=== PATIENT | female | born 1950 | race Caucasian/White ===

== ENCOUNTER 2023-03-10 09:01 | Inpatient (IN) | payer OTHER, MEDICAID ==
[~2023-03-10] VITALS: Ht 157.5 cm; Wt 107.0 kg
[~2023-03-10 09:01] MED LIST: ASPI-1155 PO; CHOL50006 PO; FURO-149 PO; GLIP10TA11 PO; INSU100V9 SUBCUT; LOSA50TA3 PO; OMEP40CA20 PO; POTA10TA15 PO; ROPI4TAB3 PO; SITA50TA3 PO; SUCR1TAB2 PO
[2023-03-10 09:06] VITALS: BP_SYST 117; PULSE 91; RESP 22; TEMP 98; O2SAT 88
[2023-03-10 09:45] LABS: BASOPHILS # (AUTO) 0.1 K/uL (0.0-0.2); BASOPHILS % (AUTO) 0.9 % (0.0-2.0); EOSINOPHILS # (AUTO) 0.3 K/uL (0.0-0.4); EOSINOPHILS % (AUTO) 2.8 % (0.0-4.0); HEMATOCRIT 28.1 % (36-48); HEMOGLOBIN 9.6 g/dL (12.0-16.0); LYMPHOCYTES # (AUTO) 2.1 K/uL (1.0-5.5); LYMPHOCYTES % (AUTO) 17.6 % (20.5-51.5); MEAN CORPUSCULAR HEMOGLOBIN 36 pg (27-31); MEAN CORPUSCULAR HGB CONC 34 % (32-36); MEAN CORPUSCULAR VOLUME 104 fL (79.0-98.0); MONOCYTES # (AUTO) 1.5 K/uL (0.0-1.0); MONOCYTES % (AUTO) 12.4 % (1.7-9.3); NEUTROPHILS # (AUTO) 7.8 K/uL (1.8-7.7); NEUTROPHILS % (AUTO) 66.3 % (40.0-70.0); PLATELET COUNT (AUTO) 254 K/uL (130-430); WHITE BLOOD COUNT (AUTO) 11.7 K/uL (4.8-10.8)
[2023-03-10 10:01] LABS: INR 1.1 (0.8-1.2); PROTHROMBIN TIME 11.7 SECS (9.5-12.5)
[2023-03-10 10:02] LABS: ANION GAP 11 (5-15); CALCIUM 8.3 mg/dL (8.4-11.0); CHLORIDE 100 mmol/L (98-107); CREATININE 6.52 mg/dL (0.55-1.30); GLUCOSE 191 mg/dL (70-99); UREA NITROGEN, BLOOD 63 mg/dL (8-21)
[2023-03-10 10:07] LABS: ALANINE AMINOTRANSFERASE 30 U/L (12-78); ALBUMIN 2.9 g/dL (3.4-4.8); ASPARTATE AMINOTRANSFERASE 15 U/L (10-37); TOTAL BILIRUBIN 0.4 mg/dL (0.0-1.0)
[2023-03-10] MEDS ORDERED: MORPHINE 2 MG/ML INJ. SYRINGE IVP ONE (14:15)
[2023-03-10 15:46] VITALS: BP_SYST 130; PULSE 84; RESP 16; TEMP 97.2
[2023-03-10 16:20] VITALS: O2SAT 94
[2023-03-10] MEDS ORDERED: SIME80TA15 PO (16:51)
[2023-03-10] MEDS ORDERED: VANC125C10 PO (16:51)
[2023-03-10] MEDS ORDERED: FURO-150 PO (16:51)
[2023-03-10] MEDS ORDERED: GABA-529 PO (16:51)
[2023-03-10] MEDS ORDERED: MIDO10TA PO (16:51)
[2023-03-10] MEDS ORDERED: METR-154 PO (16:51)
[2023-03-10] MEDS ORDERED: TRAM50TA2 PO (16:51)
[2023-03-10 20:00] VITALS: BP_SYST 116; PULSE 87; RESP 17; TEMP 97.7; O2SAT 95
[2023-03-10] MEDS ORDERED: INSULIN REGULAR, HUMAN 100 UNITS/ML, 3 ML VIAL (humuLIN R) SUBCUT PRN (22:30)
[2023-03-10] MEDS ORDERED: NALOXONE HCL 0.4 MG/ML AMP (NARCAN) IVP PRN (22:30)
[2023-03-10] MEDS ORDERED: ACETAMINOPHEN 325 MG TABLET PO PRN (22:30)
[2023-03-10] MEDS ORDERED: HYDROcodone/ACETAMIN 10-325 MG TAB PO PRN (22:30)
[2023-03-10] MEDS ORDERED: ONDANSETRON HCL 4 MG/2 ML VIAL IVP PRN (22:30)
[2023-03-10] MEDS ORDERED: LORazepam 2 MG/ML VIAL IVP PRN (22:30)
[2023-03-10] MEDS ORDERED: traMADol HCL HCL 50 MG TABLET (ULTRAM) PO PRN (22:30)
[2023-03-10] MEDS ORDERED: CHOLECALCIFEROL (VITAMIN D3) 5,000 UNIT TABLET PO SCH (22:30)
[2023-03-11] VITALS: BP_SYST 129; PULSE 88; RESP 18; TEMP 98; O2SAT 94
[2023-03-11 00:42] VITALS: O2SAT 95
[2023-03-11 06:30] LABS: BASOPHILS # (AUTO) 0.1 K/uL (0.0-0.2); EOSINOPHILS # (AUTO) 0.3 K/uL (0.0-0.4); EOSINOPHILS % (AUTO) 3.7 % (0.0-4.0); HEMATOCRIT 24.1 % (36-48); HEMOGLOBIN 8.4 g/dL (12.0-16.0); LYMPHOCYTES # (AUTO) 2.4 K/uL (1.0-5.5); LYMPHOCYTES % (AUTO) 25.9 % (20.5-51.5); MEAN CORPUSCULAR HEMOGLOBIN 37 pg (27-31); MEAN CORPUSCULAR HGB CONC 35 % (32-36); MEAN CORPUSCULAR VOLUME 105 fL (79.0-98.0); MONOCYTES # (AUTO) 1.3 K/uL (0.0-1.0); MONOCYTES % (AUTO) 14.2 % (1.7-9.3); NEUTROPHILS # (AUTO) 5.2 K/uL (1.8-7.7); NEUTROPHILS % (AUTO) 55.2 % (40.0-70.0); PLATELET COUNT (AUTO) 271 K/uL (130-430); RED BLOOD CELL COUNT(AUTO) 2.29 MIL/uL (4.2-6.2); RED CELL DISTRIBUTION WIDTH 13.6 % (9.0-15.0); WHITE BLOOD COUNT (AUTO) 9.4 K/uL (4.8-10.8)
[2023-03-11] MEDS: NORMAL SALINE 5 ML DISP.SYRIN IVF SCH ×2 (06:30→15:28)
[2023-03-11 07:07] LABS: ALANINE AMINOTRANSFERASE 37 U/L (12-78); ALBUMIN 2.7 g/dL (3.4-4.8); ANION GAP 13 (5-15); ASPARTATE AMINOTRANSFERASE 19 U/L (10-37); CALCIUM 7.5 mg/dL (8.4-11.0); CHLORIDE 100 mmol/L (98-107); GLUCOSE 145 mg/dL (70-99); PHOSPHORUS 6.1 mg/dL (2.7-4.5); TOTAL BILIRUBIN 0.4 mg/dL (0.0-1.0); UREA NITROGEN, BLOOD 78 mg/dL (8-21)
[2023-03-11 07:42] LABS: CREATININE 8.06 mg/dL (0.55-1.30)
[2023-03-11 08:24] VITALS: BP_SYST 106; PULSE 89; RESP 20; TEMP 97.6; O2SAT 96
[2023-03-11] MEDS ORDERED: LOSARTAN POTASSIUM 50 MG TABLET (COZAAR) PO SCH (09:00)
[2023-03-11] MEDS ORDERED: POTASSIUM CHLORIDE 10 MEQ TAB.PRT.SR PO SCH (09:00)
[2023-03-11] MEDS ORDERED: PANTOPRAZOLE SODIUM 40 MG TAB PO SCH (09:00)
[2023-03-11] MEDS ORDERED: INSULIN GLARGINE 100 UNITS/ML, 10 ML VIAL SUBCUT SCH (09:00)
[2023-03-11] MEDS ORDERED: ASPIRIN 81 MG TAB.CHEW PO SCH (09:00)
[2023-03-11] MEDS ORDERED: VANCOMYCIN HCL Non-Formulary 125 MG CAPSULE PO SCH (09:00)
[2023-03-11] MEDS ORDERED: SUCRALFATE 1 GM TABLET PO SCH (09:00)
[2023-03-11] MEDS ORDERED: FUROSEMIDE 40 MG TABLET PO SCH (09:00)
[2023-03-11 09:25] LABS: TOTAL IRON BIND. CAPACITY 180 ug/dL (250-450)
[2023-03-11] MEDS: GABAPENTIN 100 MG CAPSULE PO SCH ×2 (10:35→17:04)
[2023-03-11] MEDS: traMADol HCL HCL 50 MG TABLET (ULTRAM) PO PRN ×2 (10:37→17:06)
[2023-03-11] MEDS: metroNIDAZOLE 500 MG TABLET PO SCH ×2 (10:38→17:06)
[2023-03-11] MEDS: MIDODRINE HCL 5 MG TABLET (PROAMATINE) PO SCH ×2 (10:38→17:05)
[2023-03-11] MEDS: VANCOMYCIN HCL ORAL SOLUTION 125 MG/5 ML, 150 ML PO SCH ×3 (10:40→19:03)
[2023-03-11] MEDS: SIMETHICONE 80 MG TAB.CHEW PO SCH ×2 (10:42→17:05)
[2023-03-11 12:02] VITALS: BP_SYST 124; PULSE 87; RESP 19; TEMP 98.2; O2SAT 96
[2023-03-11] MEDS ORDERED: IRON DEXTRAN COMPLEX 25 MG in NS 50 ML TEST DOSE IV ONE (15:00)
[2023-03-11] MEDS ORDERED: IRON DEXTRAN COMPLEX 100 MG in NS 100 ML IV SCH (15:00)
[2023-03-11] MEDS ORDERED: IRON DEXTRAN COMPLEX 75 MG in NS 100 ML IV ONE (16:00)
[2023-03-11 17:38] VITALS: BP_SYST 105; PULSE 78; RESP 18; TEMP 97.4; O2SAT 97
[2023-03-11] MEDS ORDERED: SEVELAMER CARBONATE 800 MG TABLET PO SCH (18:00)
[2023-03-11 20:00] VITALS: BP_SYST 137; PULSE 78; RESP 18; TEMP 98.5; O2SAT 93
[2023-03-12] MEDS ORDERED: calcitrioL 0.25 MCG CAPSULE PO SCH (09:00)
[2023-03-12] MEDS ORDERED: IRON DEXTRAN COMPLEX 100 MG in NS 100 ML IV SCH (16:00)
== END 2023-03-11 20:45 | disposition home health service (06) | DRG 562 ==
LOC: SED 09:01 → SMU 14:08
PROVIDERS: ADMIT Preventive Medicine Preventive Medicine/Occupational Environmental Medicine; ATTEND Preventive Medicine Preventive Medicine/Occupational Environmental Medicine
PROC: 5A1D70Z Performance of Urinary Filtration, Intermittent, Less than 6 Hours Per Day (ICD-10-PCS; principal; 2023-03-10)
PROC: 0QSKXZZ Reposition Left Fibula, External Approach (ICD-10-PCS; 2023-03-10)
DX: S82.62XA Displaced fracture of lateral malleolus of left fibula, initial encounter for closed fracture (principal); N18.6 End stage renal disease; I13.2 Hypertensive heart and chronic kidney disease with heart failure and with stage 5 chronic kidney disease, or end stage renal disease; Z68.41 Body mass index [BMI] 40.0-44.9, adult; K21.9 Gastro-esophageal reflux disease without esophagitis; J44.9 Chronic obstructive pulmonary disease, unspecified; J45.909 Unspecified asthma, uncomplicated; I25.10 Atherosclerotic heart disease of native coronary artery without angina pectoris; E11.22 Type 2 diabetes mellitus with diabetic chronic kidney disease; G25.81 Restless legs syndrome; E11.65 Type 2 diabetes mellitus with hyperglycemia; E87.5 Hyperkalemia; E66.9 Obesity, unspecified; E83.51 Hypocalcemia; D50.9 Iron deficiency anemia, unspecified; I95.9 Hypotension, unspecified; W01.0XXA Fall on same level from slipping, tripping and stumbling without subsequent striking against object, initial encounter; E88.09 Other disorders of plasma-protein metabolism, not elsewhere classified; Z86.73 Personal history of transient ischemic attack (TIA), and cerebral infarction without residual deficits; Z88.0 Allergy status to penicillin; Z88.8 Allergy status to other drugs, medicaments and biological substances; I50.9 Heart failure, unspecified
CPT/HCPCS: 36415; 70450-TC; 72125-TC; 76376; 80053; 83540; 83550; 84100; 84484; 85025; 85610-TC; 85730-TC; 87081; 90935; 97110-GP; 97116-GP; 97163-GP; 97530-GP; 99285; J1750; J1815; J7030

== ENCOUNTER 2023-03-31 17:35 | Inpatient (IN) | payer OTHER, MEDICAID ==
[~2023-03-31] VITALS: Ht 157.5 cm; Wt 105.0 kg
[~2023-03-31 17:35] MED LIST changes: +FURO-150 PO; +GABA-529 PO; +METR-154 PO; +MIDO10TA PO; +SIME80TA15 PO; +TRAM50TA2 PO; +VANC125C10 PO
[2023-03-31 17:50] VITALS: BP_SYST 139; PULSE 99; RESP 18; TEMP 98.3; O2SAT 95
[2023-03-31] MEDS ORDERED: ACETAMINOPHEN 500 MG TABLET PO ONE (19:45)
[2023-03-31] MEDS ORDERED: CEFAZOLIN 2 GM IVPB PREMIX 50 ML IV ONE (20:45)
[2023-03-31 21:01] LABS: BASOPHILS # (AUTO) 0.1 K/uL (0.0-0.2); BASOPHILS % (AUTO) 0.7 % (0.0-2.0); EOSINOPHILS # (AUTO) 0.2 K/uL (0.0-0.4); HEMATOCRIT 29.3 % (36-48); HEMOGLOBIN 9.6 g/dL (12.0-16.0); LYMPHOCYTES # (AUTO) 2.5 K/uL (1.0-5.5); LYMPHOCYTES % (AUTO) 21.9 % (20.5-51.5); MEAN CORPUSCULAR HEMOGLOBIN 34 pg (27-31); MEAN CORPUSCULAR HGB CONC 33 % (32-36); MEAN CORPUSCULAR VOLUME 104 fL (79.0-98.0); MONOCYTES # (AUTO) 1.4 K/uL (0.0-1.0); MONOCYTES % (AUTO) 12.4 % (1.7-9.3); NEUTROPHILS # (AUTO) 7.1 K/uL (1.8-7.7); PLATELET COUNT (AUTO) 398 K/uL (130-430); RED BLOOD CELL COUNT(AUTO) 2.82 MIL/uL (4.2-6.2); RED CELL DISTRIBUTION WIDTH 14.1 % (9.0-15.0); WHITE BLOOD COUNT (AUTO) 11.3 K/uL (4.8-10.8)
[2023-03-31] MEDS ORDERED: CEFAZOLIN 1 GM IVPB PREMIX 100 ML IV ONE (21:10)
[2023-03-31 21:15] LABS: ALANINE AMINOTRANSFERASE 20 U/L (12-78); ANION GAP 9 (5-15); ASPARTATE AMINOTRANSFERASE 19 U/L (10-37); CALCIUM 8.3 mg/dL (8.4-11.0); CHLORIDE 91 mmol/L (98-107); CREATININE 6.49 mg/dL (0.55-1.30); GLUCOSE 123 mg/dL (74-106); TOTAL BILIRUBIN 0.5 mg/dL (0.0-1.0); UREA NITROGEN, BLOOD 38 mg/dL (8-21)
[2023-03-31] MEDS ORDERED: D5/0.45 NS 1,000 ML IV ONE (21:15)
[2023-03-31] MEDS: MORPHINE 2 MG/ML INJ. SYRINGE IVP PRN (21:57)
[2023-03-31] MEDS ORDERED: AMLO5TAB4 PO (22:26)
[2023-03-31] MEDS ORDERED: SSNOVOLOG SUBCUT (22:26)
[2023-03-31] MEDS ORDERED: SEVE0.8P3 PO (22:26)
[2023-03-31] MEDS ORDERED: BENZ100C92 PO (22:26)
[2023-04-01] MEDS ORDERED: ONDANSETRON HCL 4 MG/2 ML VIAL IM PRN (00:30)
[2023-04-01] MEDS ORDERED: NALOXONE HCL 0.4 MG/ML AMP (NARCAN) IVP PRN (00:30)
[2023-04-01] MEDS: MORPHINE 2 MG/ML INJ. SYRINGE IVP PRN ×4 (00:58→21:21)
[2023-04-01 01:10] VITALS: BP_SYST 123; PULSE 75; RESP 18; TEMP 97.1; O2SAT 99
[2023-04-01 06:00] LABS: BASOPHILS # (AUTO) 0.1 K/uL (0.0-0.2); BASOPHILS % (AUTO) 0.7 % (0.0-2.0); EOSINOPHILS # (AUTO) 0.2 K/uL (0.0-0.4); EOSINOPHILS % (AUTO) 2.6 % (0.0-4.0); HEMATOCRIT 23.9 % (36-48); LYMPHOCYTES # (AUTO) 2.3 K/uL (1.0-5.5); LYMPHOCYTES % (AUTO) 25.5 % (20.5-51.5); MEAN CORPUSCULAR HEMOGLOBIN 35 pg (27-31); MEAN CORPUSCULAR HGB CONC 33 % (32-36); MEAN CORPUSCULAR VOLUME 103 fL (79.0-98.0); MONOCYTES # (AUTO) 1.2 K/uL (0.0-1.0); MONOCYTES % (AUTO) 13.2 % (1.7-9.3); NEUTROPHILS # (AUTO) 5.2 K/uL (1.8-7.7); PLATELET COUNT (AUTO) 321 K/uL (130-430); RED BLOOD CELL COUNT(AUTO) 2.31 MIL/uL (4.2-6.2); RED CELL DISTRIBUTION WIDTH 14.3 % (9.0-15.0)
[2023-04-01 06:32] LABS: ALANINE AMINOTRANSFERASE 39 U/L (12-78); ALBUMIN 2.5 g/dL (3.4-4.8); ANION GAP 11 (5-15); ASPARTATE AMINOTRANSFERASE 54 U/L (10-37); CALCIUM 7.7 mg/dL (8.4-11.0); CHLORIDE 94 mmol/L (98-107); CREATININE 7.27 mg/dL (0.55-1.30); GLUCOSE 104 mg/dL (74-106); TOTAL BILIRUBIN 0.8 mg/dL (0.0-1.0); UREA NITROGEN, BLOOD 46 mg/dL (8-21)
[2023-04-01 08:00] VITALS: BP_SYST 118; PULSE 72; RESP 18; TEMP 96.8; O2SAT 100
[2023-04-01 12:10] VITALS: BP_SYST 112; PULSE 73; RESP 18; TEMP 97.3; O2SAT 96
[2023-04-01] MEDS ORDERED: PROPOFOL 200MG/ 20ML VIAL (DIPRIVAN) IV ONE (12:25)
[2023-04-01] MEDS ORDERED: VANCOMYCIN HCL 1000 MG/VIAL IV ONE (12:25)
[2023-04-01] MEDS ORDERED: fentaNYL CITRATE/PF 100 MCG/2 ML AMP ONE (12:25)
[2023-04-01] MEDS ORDERED: SEVOFLURANE 15 MIN GAS INH ONE (12:25)
[2023-04-01] MEDS ORDERED: NS IRRIG SOLN 1000 ML IR ONE (12:25)
[2023-04-01] MEDS ORDERED: NS 1000 ML IV.SOLN IV ONE (12:25)
[2023-04-01] MEDS ORDERED: ONDANSETRON HCL 4 MG/2 ML VIAL ONE (12:25)
[2023-04-01] MEDS ORDERED: METOCLOPRAMIDE HCL 10 MG/2 ML VIAL IVP PRN (13:00)
[2023-04-01] MEDS ORDERED: NACL 0.9% 1,000 ML IV SCH (13:00)
[2023-04-01] MEDS ORDERED: ONDANSETRON HCL 4 MG/2 ML VIAL IVP PRN (13:00)
[2023-04-01] MEDS: HYDROmorphone 1 MG/ML INJ. CARTRIDGE IVP PRN ×3 (13:35→14:05)
[2023-04-01] MEDS ORDERED: HYDROmorphone 1 MG/ML INJ. CARTRIDGE ONE (13:36)
[2023-04-01] MEDS ORDERED: VANCOMYCIN HCL 1,000 MG in NS 250 ML IV ONE (16:00)
[2023-04-01 16:34] VITALS: BP_SYST 123; PULSE 82; RESP 18; TEMP 97.5; O2SAT 98
[2023-04-01 20:00] VITALS: BP_SYST 118; PULSE 77; RESP 18; TEMP 97; O2SAT 100
[2023-04-01] MEDS ORDERED: MIDODRINE HCL 5 MG TABLET (PROAMATINE) PO ONE (21:30)
[2023-04-01] MEDS ORDERED: INSULIN ASPART 100 UNITS/ML, 10 ML VIAL (NovoLOG) SUBCUT PRN (22:15)
[2023-04-01] MEDS ORDERED: GABAPENTIN 100 MG CAPSULE PO ONE (22:15)
[2023-04-01] MEDS ORDERED: traMADol HCL HCL 50 MG TABLET (ULTRAM) PO ONE (22:15)
[2023-04-01] MEDS: ceFAZolin SODIUM 2 GM in D5W 100 ML IV SCH (23:15)
[2023-04-01] MEDS ORDERED: PANTOPRAZOLE SODIUM 40 MG TAB PO ONE (23:15)
[2023-04-02 00:15] VITALS: BP_SYST 138; PULSE 98; RESP 20; TEMP 97.9; O2SAT 98
[2023-04-02] MEDS ORDERED: XALEYE OP (01:37)
[2023-04-02] MEDS ORDERED: LINA5TAB2 PO (01:37)
[2023-04-02] MEDS ORDERED: LOM2.5 PO (01:37)
[2023-04-02] MEDS ORDERED: NEU300 PO (01:37)
[2023-04-02] MEDS ORDERED: ACET-2634 PO (01:49)
[2023-04-02] MEDS ORDERED: FIDA200T PO (01:49)
[2023-04-02] MEDS ORDERED: IMO2 PO (01:49)
[2023-04-02] MEDS ORDERED: SIMETHICONE 80 MG TAB.CHEW PO SCH (02:00)
[2023-04-02] MEDS ORDERED: BENZONATATE 100 MG CAPSULE (TESSALON) PO PRN (02:00)
[2023-04-02] MEDS ORDERED: ACETAMINOPHEN 500 MG TABLET PO SCH (02:00)
[2023-04-02] MEDS ORDERED: DIPHENOXYLATE HCL/ATROP SULF 2.5 MG TAB PO SCH (02:00)
[2023-04-02] MEDS ORDERED: CHOLECALCIFEROL (VITAMIN D3) 5,000 UNIT TABLET PO SCH (02:00)
[2023-04-02] MEDS: LOPERAMIDE HCL 2 MG CAPSULE PO SCH ×3 (05:08→17:13)
[2023-04-02 05:38] LABS: BASOPHILS # (AUTO) 0.1 K/uL (0.0-0.2); BASOPHILS % (AUTO) 0.5 % (0.0-2.0); EOSINOPHILS # (AUTO) 0.2 K/uL (0.0-0.4); EOSINOPHILS % (AUTO) 1.8 % (0.0-4.0); HEMATOCRIT 24.6 % (36-48); HEMOGLOBIN 8.1 g/dL (12.0-16.0); LYMPHOCYTES # (AUTO) 0.8 K/uL (1.0-5.5); LYMPHOCYTES % (AUTO) 8.2 % (20.5-51.5); MEAN CORPUSCULAR HEMOGLOBIN 34 pg (27-31); MEAN CORPUSCULAR HGB CONC 33 % (32-36); MEAN CORPUSCULAR VOLUME 104 fL (79.0-98.0); MONOCYTES # (AUTO) 0.9 K/uL (0.0-1.0); MONOCYTES % (AUTO) 8.9 % (1.7-9.3); NEUTROPHILS # (AUTO) 8.1 K/uL (1.8-7.7); NEUTROPHILS % (AUTO) 80.6 % (40.0-70.0); PLATELET COUNT (AUTO) 322 K/uL (130-430); RED BLOOD CELL COUNT(AUTO) 2.37 MIL/uL (4.2-6.2); RED CELL DISTRIBUTION WIDTH 14.1 % (9.0-15.0); WHITE BLOOD COUNT (AUTO) 10.1 K/uL (4.8-10.8)
[2023-04-02 05:53] LABS: ANION GAP 8 (5-15); CALCIUM 7.8 mg/dL (8.4-11.0); CHLORIDE 99 mmol/L (98-107); CREATININE 4.65 mg/dL (0.55-1.30); GLUCOSE 151 mg/dL (74-106); PHOSPHORUS 4.4 mg/dL (2.7-4.5); UREA NITROGEN, BLOOD 23 mg/dL (8-21); VANCOMYCIN,RANDOM 18.8 ug/mL
[2023-04-02] MEDS: ceFAZolin SODIUM 2 GM in D5W 100 ML IV SCH ×3 (06:18→22:00)
[2023-04-02 07:00] VITALS: BP_SYST 130; PULSE 93; RESP 18; TEMP 98.7; O2SAT 99
[2023-04-02 08:00] VITALS: BP_SYST 130; PULSE 93; RESP 18; TEMP 98.7; O2SAT 99
[2023-04-02] MEDS: INSULIN GLARGINE 100 UNITS/ML, 10 ML VIAL SUBCUT SCH (08:30)
[2023-04-02] MEDS: ASPIRIN 81 MG TAB.CHEW PO SCH (08:31)
[2023-04-02] MEDS: amLODIPine BESYLATE 5 MG TABLET PO SCH (08:33)
[2023-04-02] MEDS: SEVELAMER CARBONATE 800 MG TABLET PO SCH ×3 (08:34→17:13)
[2023-04-02] MEDS: MORPHINE 2 MG/ML INJ. SYRINGE IVP PRN (08:35)
[2023-04-02] MEDS: MIDODRINE HCL 5 MG TABLET (PROAMATINE) PO SCH ×3 (08:38→21:44)
[2023-04-02 11:52] VITALS: BP_SYST 130; PULSE 92; RESP 17; TEMP 97.4; O2SAT 91
[2023-04-02 16:52] VITALS: BP_SYST 114; PULSE 79; RESP 19; TEMP 97.9; O2SAT 91
[2023-04-02 20:00] VITALS: O2SAT 95
[2023-04-02] MEDS: GABAPENTIN 100 MG CAPSULE PO SCH (21:44)
[2023-04-02] MEDS: PANTOPRAZOLE SODIUM 40 MG TAB PO SCH (21:44)
[2023-04-02] MEDS: LATANOPROST 2.5 ML DROPS (XALATAN) OP SCH (21:44)
[2023-04-02] MEDS: INSULIN LISPRO SLIDING SCALE 100 UNITS/ML, 3 ML VIAL (humaLOG) SUBCUT PRN (21:50)
[2023-04-03] VITALS (9 sets, daily range): BP systolic 119–136; PULSE 77–88; RESP 12–20; TEMP 97.2–98.5; O2SAT 94–100
[2023-04-03] MEDS: LOPERAMIDE HCL 2 MG CAPSULE PO SCH ×2 (00:57→06:51)
[2023-04-03] MEDS: ceFAZolin SODIUM 2 GM in D5W 100 ML IV SCH ×3 (05:08→22:54)
[2023-04-03] MEDS ORDERED: ONDANSETRON HCL 4 MG/2 ML VIAL IVP PRN (09:00)
[2023-04-03] MEDS ORDERED: VANCOMYCIN HCL 1,000 MG in NS 250 ML IV ONE (09:00)
[2023-04-03] MEDS: SEVELAMER CARBONATE 800 MG TABLET PO SCH ×3 (09:46→18:00)
[2023-04-03] MEDS: MIDODRINE HCL 5 MG TABLET (PROAMATINE) PO SCH ×3 (09:46→21:00)
[2023-04-03] MEDS: ASPIRIN 81 MG TAB.CHEW PO SCH (09:46)
[2023-04-03] MEDS: INSULIN GLARGINE 100 UNITS/ML, 10 ML VIAL SUBCUT SCH (10:12)
[2023-04-03] MEDS: traMADol HCL HCL 50 MG TABLET (ULTRAM) PO PRN ×2 (15:26→23:07)
[2023-04-03] MEDS: amLODIPine BESYLATE 5 MG TABLET PO SCH (15:27)
[2023-04-03] MEDS ORDERED: EPOETIN ALFA 10,000 UNITS/ML VIAL SUBCUT SCH (17:00)
[2023-04-03] MEDS: GABAPENTIN 100 MG CAPSULE PO SCH (21:00)
[2023-04-03] MEDS: LATANOPROST 2.5 ML DROPS (XALATAN) OP SCH (21:00)
[2023-04-03] MEDS: PANTOPRAZOLE SODIUM 40 MG TAB PO SCH (22:52)
[2023-04-04] VITALS: BP_SYST 125; PULSE 87; RESP 18; TEMP 97.5; O2SAT 99
[2023-04-04 06:06] LABS: BASOPHILS % (AUTO) 0.5 % (0.0-2.0); EOSINOPHILS # (AUTO) 0.3 K/uL (0.0-0.4); EOSINOPHILS % (AUTO) 2.9 % (0.0-4.0); HEMATOCRIT 24.6 % (36-48); LYMPHOCYTES # (AUTO) 1.3 K/uL (1.0-5.5); LYMPHOCYTES % (AUTO) 13.5 % (20.5-51.5); MEAN CORPUSCULAR HEMOGLOBIN 34 pg (27-31); MEAN CORPUSCULAR HGB CONC 33 % (32-36); MEAN CORPUSCULAR VOLUME 105 fL (79.0-98.0); MONOCYTES # (AUTO) 1.5 K/uL (0.0-1.0); MONOCYTES % (AUTO) 15.3 % (1.7-9.3); NEUTROPHILS # (AUTO) 6.5 K/uL (1.8-7.7); NEUTROPHILS % (AUTO) 67.8 % (40.0-70.0); PLATELET COUNT (AUTO) 329 K/uL (130-430); RED BLOOD CELL COUNT(AUTO) 2.35 MIL/uL (4.2-6.2); RED CELL DISTRIBUTION WIDTH 14.8 % (9.0-15.0); WHITE BLOOD COUNT (AUTO) 9.6 K/uL (4.8-10.8)
[2023-04-04] MEDS: ceFAZolin SODIUM 2 GM in D5W 100 ML IV SCH (06:46)
[2023-04-04 07:03] LABS: ALANINE AMINOTRANSFERASE 8 U/L (12-78); ALBUMIN 2.3 g/dL (3.4-4.8); ANION GAP 10 (5-15); ASPARTATE AMINOTRANSFERASE 16 U/L (10-37); CHLORIDE 96 mmol/L (98-107); CREATININE 4.91 mg/dL (0.55-1.30); GLUCOSE 151 mg/dL (74-106); TOTAL BILIRUBIN 0.3 mg/dL (0.0-1.0); UREA NITROGEN, BLOOD 27 mg/dL (8-21)
[2023-04-04 08:00] VITALS: O2SAT 97
[2023-04-04] MEDS: SEVELAMER CARBONATE 800 MG TABLET PO SCH ×3 (08:00→18:00)
[2023-04-04] MEDS: amLODIPine BESYLATE 5 MG TABLET PO SCH (09:00)
[2023-04-04] MEDS: MIDODRINE HCL 5 MG TABLET (PROAMATINE) PO SCH ×3 (09:00→21:42)
[2023-04-04] MEDS: ASPIRIN 81 MG TAB.CHEW PO SCH (09:00)
[2023-04-04] MEDS: INSULIN GLARGINE 100 UNITS/ML, 10 ML VIAL SUBCUT SCH (09:00)
[2023-04-04 11:59] VITALS: BP_SYST 138; PULSE 79; RESP 18; TEMP 97.6; O2SAT 99
[2023-04-04] MEDS: METOCLOPRAMIDE HCL 10 MG/2 ML VIAL IVP SCH ×3 (14:32→23:31)
[2023-04-04 17:09] VITALS: BP_SYST 147; PULSE 92; RESP 19; TEMP 97.9; O2SAT 94
[2023-04-04] MEDS: traMADol HCL HCL 50 MG TABLET (ULTRAM) PO PRN (18:51)
[2023-04-04 20:00] VITALS: BP_SYST 119; PULSE 91; RESP 18; TEMP 97.6; O2SAT 92; O2SAT 94
[2023-04-04] MEDS: LATANOPROST 2.5 ML DROPS (XALATAN) OP SCH (21:00)
[2023-04-04] MEDS: GABAPENTIN 100 MG CAPSULE PO SCH (21:42)
[2023-04-04] MEDS: PANTOPRAZOLE SODIUM 40 MG TAB PO SCH (21:42)
[2023-04-04 23:04] VITALS: PULSE 85
[2023-04-05 01:20] VITALS: PULSE 82
[2023-04-05 01:32] VITALS: BP_SYST 133; PULSE 85; RESP 19; TEMP 98; O2SAT 99
[2023-04-05 05:26] VITALS: PULSE 85
[2023-04-05 05:27] VITALS: PULSE 84
[2023-04-05] MEDS: METOCLOPRAMIDE HCL 10 MG/2 ML VIAL IVP SCH ×2 (06:04→12:21)
[2023-04-05] MEDS: traMADol HCL HCL 50 MG TABLET (ULTRAM) PO PRN (06:04)
[2023-04-05] MEDS ORDERED: BISACODYL 10 MG/SUPPOSITORY RC ONE (07:30)
[2023-04-05 08:41] VITALS: BP_SYST 139; PULSE 83; RESP 17; TEMP 97
[2023-04-05] MEDS: ASPIRIN 81 MG TAB.CHEW PO SCH (09:00)
[2023-04-05] MEDS ORDERED: DOCUSATE SODIUM 100 MG CAPSULE PO SCH (09:00)
[2023-04-05] MEDS: SEVELAMER CARBONATE 800 MG TABLET PO SCH ×2 (09:31→12:22)
[2023-04-05] MEDS: amLODIPine BESYLATE 5 MG TABLET PO SCH (09:32)
[2023-04-05] MEDS: INSULIN GLARGINE 100 UNITS/ML, 10 ML VIAL SUBCUT SCH (09:39)
[2023-04-05] MEDS: INSULIN LISPRO SLIDING SCALE 100 UNITS/ML, 3 ML VIAL (humaLOG) SUBCUT PRN (12:24)
[2023-04-05 13:48] VITALS: BP_SYST 139; PULSE 83; RESP 16; TEMP 98
== END 2023-04-05 15:10 | disposition short-term general hospital (02) | DRG 492 ==
LOC: SED 17:35 → SMU 20:43
PROVIDERS: ADMIT Internal Medicine; ATTEND Internal Medicine
PROC: 5A1D70Z Performance of Urinary Filtration, Intermittent, Less than 6 Hours Per Day (ICD-10-PCS; 2023-04-01)
PROC: 0QSH04Z Reposition Left Tibia with Internal Fixation Device, Open Approach (ICD-10-PCS; principal; 2023-04-01 12:25)
PROC: 5A1D70Z Performance of Urinary Filtration, Intermittent, Less than 6 Hours Per Day (ICD-10-PCS; 2023-04-03)
PROC: 5A09357 Assistance with Respiratory Ventilation, Less than 24 Consecutive Hours, Continuous Positive Airway Pressure (ICD-10-PCS; 2023-04-03)
PROC: 5A09357 Assistance with Respiratory Ventilation, Less than 24 Consecutive Hours, Continuous Positive Airway Pressure (ICD-10-PCS; 2023-04-04)
DX: S82.842A Displaced bimalleolar fracture of left lower leg, initial encounter for closed fracture (principal); N18.6 End stage renal disease; I13.2 Hypertensive heart and chronic kidney disease with heart failure and with stage 5 chronic kidney disease, or end stage renal disease; I50.30 Unspecified diastolic (congestive) heart failure; J44.9 Chronic obstructive pulmonary disease, unspecified; K21.9 Gastro-esophageal reflux disease without esophagitis; I25.10 Atherosclerotic heart disease of native coronary artery without angina pectoris; D63.8 Anemia in other chronic diseases classified elsewhere; Z20.822 Contact with and (suspected) exposure to COVID-19; W18.39XA Other fall on same level, initial encounter; E11.22 Type 2 diabetes mellitus with diabetic chronic kidney disease; Z88.5 Allergy status to narcotic agent; Z88.2 Allergy status to sulfonamides; Z88.8 Allergy status to other drugs, medicaments and biological substances; Z79.899 Other long term (current) drug therapy; Z79.4 Long term (current) use of insulin; Z85.528 Personal history of other malignant neoplasm of kidney; Z86.73 Personal history of transient ischemic attack (TIA), and cerebral infarction without residual deficits; Z90.49 Acquired absence of other specified parts of digestive tract; Z90.710 Acquired absence of both cervix and uterus; Z99.2 Dependence on renal dialysis; Z79.82 Long term (current) use of aspirin; Y93.89 Activity, other specified; Y99.8 Other external cause status; Y92.009 Unspecified place in unspecified non-institutional (private) residence as the place of occurrence of the external cause
CPT/HCPCS: 36415; 71045; 74018; 76001; 80048; 80053; 80202; 83735; 84100; 84484; 85025; 85730-TC; 87040; 87081; 90935; 90937; 93005; 93306; 94660; 94760; 96365; 97110-GP; 97163-GP; 99285; C1713; J0690; J0885; J1170; J1815; J2270; J2405; J2704; J2765; J3010; J3370; J7030; J7050; J7060